=== PATIENT | female | born 1995 | race African-American/Black ===

== ENCOUNTER 2017-07-19 09:33 | Emergency (ER) | payer OTHER ==
[~2017-07-19] VITALS: Ht 172.7 cm; Wt 65.2 kg
[~2017-07-19 09:33] MED LIST: Z.0.NO CURRENT MEDS
[2017-07-19 09:55] VITALS: BP 126/81; PULSE 81; RESP 16; TEMP 98.4; O2SAT 100
[2017-07-19] MEDS ORDERED: SODIUM CHLOR 0.9% 1000 ML INJ 1,000 ML IV ONE (10:24)
[2017-07-19 10:58] LABS: AUTOMATED NEUTROPHIL # 4.6 TH/MM3 (1.8-7.7); BASOPHIL % 0.5 % (0.0-2.0); EOSINOPHIL # 0.1 TH/MM3 (0-0.4); EOSINOPHIL % 1.9 % (0.0-4.0); HEMATOCRIT 38.5 % (35.0-46.0); HEMOGLOBIN 12.4 GM/DL (11.6-15.3); LYMPH % 25.7 % (9.0-44.0); LYMPHOCYTE # 1.8 TH/MM3 (1.0-4.8); MEAN CELL VOLUME 72.9 FL (80.0-100.0); MEAN CORPUSCULAR HEMOGLOBIN 23.6 PG (27.0-34.0); MEAN CORPUSCULAR HGB CONC 32.3 % (32.0-36.0); MEAN PLATELET VOLUME 8.8 FL (7.0-11.0); MONOCYTE # 0.5 TH/MM3 (0-0.9); NEUT % 64.9 % (16.0-70.0); PLATELET COUNT 361 TH/MM3 (150-450); RED BLOOD COUNT 5.28 MIL/MM3 (4.00-5.30); RED CELL DISTRIBUTION WIDTH 14.5 % (11.6-17.2); WHITE BLOOD COUNT 7.1 TH/MM3 (4.0-11.0)
[2017-07-19 11:05] LABS: PROTHROMBIN TIME - PATIENT 10.3 SEC (9.8-11.6)
[2017-07-19 11:36] LABS: BACTERIA, URINE RARE /hpf; BILIRUBIN, URINE NEG (NEG); BLOOD, URINE LARGE (NEG); GLUCOSE,URINE NEG (NEG); KETONE, URINE NEG (NEG); NITRITE,URINE NEG (NEG); SQUAMOUS EPITHELIAL CELL URINE <1 /hpf (0-5); URINE COLOR LIGHT-YELLOW (YELLW/STRAW); URINE LEUKOCYTE ESTERASE NEG (NEG)
[2017-07-19 11:42] LABS: ALKALINE PHOSPHATASE 54 U/L (45-117); BLOOD UREA NITROGEN 6 MG/DL (7-18); CREATININE 0.71 MG/DL (0.50-1.00); GLOMERULAR FILTRATION RATE 123 ML/MIN (>89); GLUCOSE,RANDOM 85 MG/DL (74-106); TOTAL BILIRUBIN ADULT 0.9 MG/DL (0.2-1.0); TOTAL PROTEIN 8.4 GM/DL (6.4-8.2)
[2017-07-19 11:43] LABS: ALT (GPT) 16 U/L (10-53); AST (GOT) 13 U/L (15-37); BICARBONATE 25.1 MEQ/L (21.0-32.0); CALCIUM 8.9 MG/DL (8.5-10.1); CHLORIDE 105 MEQ/L (98-107); SODIUM (NA) 138 MEQ/L (136-145)
--- NOTE | 2017-07-19 12:50 | PD ---
HPI Chief Complaint: Related Problem Time Seen by Provider: 10:18 Travel History International Travel<30 days: No Contact w/Intl Traveler<30days: No Traveled to known affect area: No History of Present Illness HPI Patient presents to the emergency department complaining of vaginal bleeding that started this morning. Patient had unprotected sexual intercourse on yesterday. Also having some cramping with the bleeding. Last menstrual period May 03, 2017 she is and was supposed to have a first OB visit today. Sghe went to see Dr. Garvin, but was sent to the hospital when she told them she was bleeding. This is her first . Denies fever, chills , nausea, vomiting. PFSH Past Medical History Cancer: No Diabetes: No Hepatitis: No Hiatal Hernia: No Thyroid Disease: No ?: LMP: 05/03/17 Social History Alcohol Use: No Tobacco Use: No Substance Use: No Allergies-Medications (Allergen,Severity, Reaction): Coded Allergies: shrimp (Unverified Allergy, Severe, VOMITING, 10/20/16) Uncoded Allergies: NKA (Allergy, 04/20/11) Reported Meds & Prescriptions Reported Meds & Active Scripts Active No Active Prescriptions or Reported Medications Review of Systems Except as stated in HPI: all other systems reviewed are Neg Physical Exam Narrative GENERAL: Patient crying on exam. SKIN: Focused skin assessment warm/dry. HEAD: Atraumatic. Normocephalic. EYES: Pupils equal and round. No scleral icterus. No injection or drainage. ENT: No nasal bleeding or discharge. Mucous membranes pink and moist. NECK: Trachea midline. No JVD. CARDIOVASCULAR: Regular rate and rhythm. No murmur appreciated. RESPIRATORY: No accessory muscle use. Clear to auscultation. Breath sounds equal bilaterally. GASTROINTESTINAL: Abdomen soft, diffuse lower abdominal tenderness, nondistended. Hepatic and splenic margins not palpable. MUSCULOSKELETAL: No obvious deformities. No clubbing. No cyanosis. No edema. NEUROLOGICAL: Awake and alert. No obvious cranial nerve deficits. Motor grossly within normal limits. Normal speech. PSYCHIATRIC: Appropriate mood and affect; insight and judgment normal. Pelvic: Positive bleeding Data Data Last Documented VS Vital Signs Date Time Temp Pulse Resp B/P (MAP) Pulse Ox O2 Delivery O2 Flow Rate FiO2 07/19/17 14:13 97.9 72 18 115/62 (79) 100 Room Air Orders Orders Beta Hcg (Quant/Titer) (07/19/17 10:24) Complete Blood Count With Diff (07/19/17 10:24) Comprehensive Metabolic Panel (07/19/17 10:24) Iv Access Insert/Monitor (07/19/17 10:24) Sodium Chlor 0.9% 1000 Ml Inj (Ns 1000 M (07/19/17 10:24) Ed Urine Pregnancytest Poc (07/19/17 10:24) Prothrombin Time / Inr (Pt) (07/19/17 10:24) Act Partial Throm Time (Ptt) (07/19/17 10:24) Gc And Chlamydia Pcr (07/19/17 10:55) Wet Prep Profile (07/19/17 10:55) Urinalysis - C+S If Indicated (07/19/17 10:55) Us Pelvis (Ques Pr/Ect)W Trans (07/19/17 10:58) Complete Rh (07/19/17 13:19) Ed Discharge Order (07/19/17 15:34) Labs Laboratory Tests Test 07/19/17 10:10 07/19/17 10:20 07/19/17 11:00 Urine Color LIGHT-YELLOW Urine Turbidity CLEAR Urine pH 7.0 Urine Specific [place] 1.009 Urine Protein NEG mg/dL Urine Glucose (UA) NEG mg/dL Urine Ketones NEG mg/dL Urine Occult Blood LARGE Urine Nitrite NEG Urine Bilirubin NEG Urine Urobilinogen LESS THAN 2.0 MG/DL Urine Leukocyte Esterase NEG Urine RBC 111 /hpf Urine WBC 7 /hpf Urine Squamous Epithelial Cells <1 /hpf Urine Bacteria RARE /hpf Microscopic Urinalysis Comment CULT NOT INDICATED White Blood Count 7.1 TH/MM3 Red Blood Count 5.28 MIL/MM3 Hemoglobin 12.4 GM/DL Hematocrit 38.5 % Mean Corpuscular Volume 72.9 FL Mean Corpuscular Hemoglobin 23.6 PG Mean Corpuscular Hemoglobin Concent 32.3 % Red Cell Distribution Width 14.5 % Platelet Count 361 TH/MM3 Mean Platelet Volume 8.8 FL Neutrophils (%) (Auto) 64.9 % Lymphocytes (%) (Auto) 25.7 % Monocytes (%) (Auto) 7.0 % Eosinophils (%) (Auto) 1.9 % Basophils (%) (Auto) 0.5 % Neutrophils # (Auto) 4.6 TH/MM3 Lymphocytes # (Auto) 1.8 TH/MM3 Monocytes # (Auto) 0.5 TH/MM3 Eosinophils # (Auto) 0.1 TH/MM3 Basophils # (Auto) 0.0 TH/MM3 CBC Comment DIFF FINAL Differential Comment Prothrombin Time 10.3 SEC Prothromb Time International Ratio 1.0 RATIO Activated Partial Thromboplast Time 25.1 SEC Blood Urea Nitrogen 6 MG/DL Creatinine 0.71 MG/DL Random Glucose 85 MG/DL Total Protein 8.4 GM/DL Albumin 4.0 GM/DL Calcium Level 8.9 MG/DL Alkaline Phosphatase 54 U/L Aspartate Amino Transf (AST/SGOT) 13 U/L Alanine Aminotransferase (ALT/SGPT) 16 U/L Total Bilirubin 0.9 MG/DL Sodium Level 138 MEQ/L Potassium Level 3.8 MEQ/L Chloride Level 105 MEQ/L Carbon Dioxide Level 25.1 MEQ/L Anion Gap 8 MEQ/L Estimat Glomerular Filtration Rate 123 ML/MIN Human Chorionic Gonadotropin, Quant 5998 MIU/ML Clue Cells (Wet Prep) NONE SEEN Vaginal Trichomonas (Wet Prep) NONE SEEN Vaginal Yeast (Wet Prep) NONE SEEN Chlamydia trachomatis DNA (PCR) NOT DETECTED Neisseria gonorrhoeae DNA (PCR) NOT DETECTED MDM Medical Decision Making Medical Screen Exam Complete: Yes Emergency Medical Condition: Yes Interpretation(s) ultrasound: CONCLUSION: 1. Irregular, oblong gestational sac in the uterine fundus but no pole with a positive beta hCG. Findings could represent an in progress, blighted ovum or pseudo-gestational sac. 2. In addition, there is a complex area in the right ovary measuring 1.8 x 1.5 x 1.5 cm with some regional hyperemia. While this may represent an involuting corpus luteum, an ectopic cannot be completely excluded at this point. Suggest following serial beta hCG. 3. Small amount of free fluid in the left adnexal region Serum beta: 5,998; blood type->A+ Differential Diagnosis Threatened AB, STD, UTI,ectopic Narrative Course Patient presents to the emergency department with abdominal cramping and vaginal bleeding. She is . Check CBC, Colace, GC CHL, with prep, UA, serum beta, ultrasound, give IV fluids. Patient given instructions to f/u with [facility] tomorrow for repeat serum BHCG and u/s. She has been given a copy of her lab results and ultrasound results. Physician Communication Physician Communication [id number] Garvin patient's OB doctor. She states that she is not an established patient with her. She presented for her first visit today and was found to be bleeding and they sent her to the hospital. She states that she has privileges at [facility] not [place]. And that inspected ectopics could possibly follow up in 48 hours for repeat beta, but that would be at [facility]. Problem is that they would not have access to patient's records from today including the ultrasound. Advised me to call the OB hospitalist/Instructor Pilot here. Call the OB hospitalist back and she states that she would be an established patient of Dr. Garvin's because she went to her clinic today. Told me that I could call the FITNESS MANAGEMENT DIRECTOR aviation safety officer. [id number]: Spoke to FITNESS MANAGEMENT DIRECTOR on-call, Dr. Pink, stated that she wants to look at the ultrasound and give me a call back. 1521: In some views it looks like a threatened ab, less likely an ectopic. "She' s in a middle of a miscarriage. "I feel very confident that she doesn't have an ectopic." "In some views it looks like it's approaching the canal and it should pass." Advises that patient should return to hospital in 24-48 hours to have repeat beta hcg and u/s. If bleeding gets heavier, she should return in 24 hrs. If it's the same or better, 48 hours for the repeat beta and u/s. She is happy to see the patient in her office for followup, which patient prefers as she lives in [place]. Diagnosis Primary Impression: Miscarriage, threatened, early Referrals: Danii Pink MD Patient Instructions: General Instructions, Miscarriage (ED) Additional Instructions: 1. Tylenol as needed for pain. 2. Followup in 24-48 hours for repeat beta HCG and ultrasound. If bleeding worse, please return in 24 hours. If it's the same or better, can return in 48 hours. 3. Return to ER immediately for fever, vomiting, worsening abdominal pain, worsening bleeding, or for any new/worrisome /worsening symptoms. 4. Followup with Dr. Pink, please call [phone] to schedule an appointment. Scripts No Active Prescriptions or Reported Meds Disposition: 01 DISCHARGE HOME Condition: Hawa Burr MD July 19, 2017 12:50
--- NOTE | 2017-07-19 12:57 | RADRPT ---
EXAM DATE/TIME: 07/19/2017 11:40 [facility] COMPARISON: No previous studies available for comparison. INDICATIONS : Pelvic pain and heavy bleeding for 1 day with . LAB(S): Beta-hC,998 MEDICAL HISTORY : . SURGICAL HISTORY : None. ENCOUNTER: Initial ACUITY: 1 day PAIN SCORE: 10/10 LOCATION: Bilateral pelvis MEASUREMENTS: UTERUS: 11.5 x 5.5 x 6.5 cm ENDOMETRIAL STRIPE: 20 mm RIGHT OVARY: 3.0 x 2.6 x 2.8 cm cm LEFT OVARY: Non-visualized cm FREE FLUID: Yes Cul-de-sac, left adnexa CROWN RUMP LENGTH: None = WKS DAYS FHR: None BPM FINDINGS: UTERUS: The myometrium has homogeneous echotexture without mass. [place], irregular endometrial gestational s ac measures 1.3 x 2.6 x 1.6 cm. No identifiable pole. RIGHT OVARY: Complex area in the midportion of the right ovary measures 1.8 x 1.5 x 1.5 cm and does contain some r egional hypervascularity on Doppler interrogation LEFT OVARY: Left ovary cannot be visualized due to overlying bowel gas. Small amount of free fluid is seen in the left adnexal region, however MISCELLANEOUS: Small amount of free fluid in the left adnexal region. CONCLUSION: 1. Irregular, oblong gestational sac in the uterine fundus but no pole with a positive beta hCG . Findings could represent an in progress, blighted ovum or pseudo-gestational sac. 2. In addition, there is a complex area in the right ovary measuring 1.8 x 1.5 x 1.5 cm with some reg ional hyperemia. While this may represent an involuting corpus luteum, an ectopic cannot be completel y excluded at this point. Suggest following serial beta hCG. 3. Small amount of free fluid in the left adnexal region aHsmukh Kirkpatrick MD on July 19, 2017 at 12:47 Board Certified Radiologist. This report was verified electronically.
[2017-07-19 14:13] VITALS: BP 115/62; PULSE 72; RESP 18; TEMP 97.9; O2SAT 100
[2017-07-19] MEDS ORDERED: ACETAMINOPHEN 325 MG TAB PO ONE (15:45)
== END 2017-07-19 16:10 | disposition home or self-care (01) ==
LOC: NEPE 09:33
DX: O20.0 Threatened abortion (principal); Z3A.00 Weeks of gestation of pregnancy not specified
CPT/HCPCS: 76700; 76817; 80053; 81001; 84702; 84703; 85025; 85610; 85730; 86901; 87210; 87491; 87591; 96360; 99284; J7030